=== PATIENT | female | born 1990 | race Caucasian/White ===

== ENCOUNTER → 2018-01-08 | Outpatient (CLI) | payer OTHER ==
--- NOTE | 2018-01-08 08:50 | RADIOLOGY IMAGING REPORT ---
FACILITY: [facility] PATIENT NAME: Melissa Hoang : 1990 MR: [id number] V: [id number] EXAM DATE: ORDERING PHYSICIAN: DENISE WOOTEN TECHNOLOGIST: Location: [facility] [place] Patient: Melissa Hoang : 1990 Visit/Account:[id number] Date of Sevice: 01/08/2018 BRAIN W/O CONTRAST Comparisons: None. Additional pertinent history: Concussion 4 months ago with headaches and difficulty concentrating TECHNIQUE: Multiplanar, multisequence brain MRI was performed without gadolinium contrast. FINDINGS: Sagittal midline structures and craniocervical junction: Negative. Midline shift: None. Ventricles: Negative. Brain parenchyma: Diffusion weighted imaging: Negative. Gradient sequence: Negative. T2 weighted FLAIR images: Negative. Extra-axial spaces: Negative. Dural venous sinuses and major arterial flow voids: Negative. Mastoid air cells and paranasal sinuses: Negative. Surrounding soft tissues and orbits: Negative. Impression: Normal brain MRI without contrast. Report Dictated By: Gentry Dallas MD at 01/08/2018 8:40 AM Report E-Signed By: Gentry Dallas MD at 01/08/2018 8:46 AM WSN:[id number]
== END ==
LOC: MRI 07:48
PROVIDERS: ATTEND Emergency Medicine Sports Medicine
DX: S06.0X0D Concussion without loss of consciousness, subsequent encounter (principal)
CPT/HCPCS: 70551